=== PATIENT | female | born 1970 ===

== ENCOUNTER 2017-11-16 12:42 | Emergency (ER) | payer BC ==
[2017-11-16 14:04] LABS: BASO % 0.4 % (0.0-2.0); EOS # 0.1 K/uL (0.0-0.7); EOS % 0.9 % (0.0-4.0); HEMOGLOBIN 12.1 g/dL (12.0-16.0); LYMPH # 1.7 K/uL (1.0-4.3); LYMPH % 29.5 % (20.0-40.0); MEAN CELL VOLUME 86.1 fl (81.0-99.0); MEAN CORPUSCULAR HEMOGLOBIN 29.2 pg (27.0-31.0); MEAN CORPUSCULAR HGB CONC 33.9 g/dL (33.0-37.0); MEAN PLATELET VOLUME 8.9 fl (7.2-11.7); MONO # 0.5 K/uL (0.0-0.8); MONO % 8.9 % (0.0-10.0); NEUT # 3.6 K/uL (1.8-7.0); NEUT % 60.3 % (50.0-75.0); NRBC % 0.1 % (0.0-0.0); RBC 4.14 Mil/uL (3.80-5.20); RED CELL DISTRIBUTION WIDTH 13.4 % (11.5-14.5); WHITE BLOOD COUNT 5.9 K/uL (4.8-10.8)
[2017-11-16 14:14] LABS: ALB/GLOB RATIO 1.1 (1.0-2.1); ALBUMIN 4.2 g/dL (3.5-5.0); ALT/SGPT 26 U/L (9-52); AST/SGOT 24 U/L (14-36); BLOOD UREA NITROGEN 15 mg/dl (7-17); CALCIUM 9.3 mg/dL (8.4-10.2); GFR AFRICAN-AMERICAN > 60; GFR NON-AFRICAN AMERICAN > 60
--- NOTE | 2017-11-16 14:49 | ED PDOC ---
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 Patient states the symptoms started when she was lifting a box while at work. She reports the pain worsened last night, prompting the ER visit. Otherwise, no fever, chills, cough, and she offers no additional medical complaints. PMD: [facility] Past Medical History Reviewed: Historical Data, Nursing Documentation, Vital Signs Vital Signs: Last Vital Signs Temp 97.8 F 11/16/17 17:42 Pulse 71 11/16/17 17:42 Resp 18 11/16/17 17:42 BP 127/84 11/16/17 17:42 Pulse Ox 98 11/16/17 17:42 - Medical History PMH: Arthritis - Surgical History Surgical History: No Surg Hx - Family History Family History: States: No Known Family Hx - Social History Current smoker - smoking cessation education provided: No Alcohol: None Drugs: Denies - Immunization History Hx Tetanus Toxoid Vaccination: No Hx Influenza Vaccination: No Hx Pneumococcal Vaccination: No - Home Medications Home Medications: Ambulatory Orders Medication Instructions Recorded Phenazopyridine [Pyridium] 100 mg PO BID #6 tab 06/28/15 Sulfamethoxazole/Trimethoprim 1 tab PO BID #14 tab 06/28/15 [Bactrim DS 800 mg-160 mg] - Allergies Allergies/Adverse Reactions: Allergies Allergy/AdvReac Type Severity Reaction Status Date / Time aspirin Allergy REDNESS Verified 06/28/15 12:14 HOLLY Risk Score for UA/NSTEMI - HOLLY Risk Score Age > 64: NO 3 or more CAD Risk Factors: NO Known CAD (Stenosis greater than 50%): NO Aspirin use in past 7 days: NO Severe Angina: NO EKG ST changes greater than 0.5mm: NO Positive Cardiac Marker: NO HOLLY Score: 0 Risk %: 5% Wells Criteria for PE - Wells Criteria for Pulmonary Embolism Clinical Signs and Symptoms of DVT: No P.E is #1 Diagnosis, or Equally Likely: No Heart Rate >100: No Immobilization at least 3 days;Surgery previous 4 weeks: No Previous, objectively diagnosed PE or DVT: No Hemoptysis: No Malignancy w/treatment within 6 months, or palliative: No Total Score: 0 Review of Systems ROS Statement: Except As Marked, All Systems Reviewed And Found Negative Constitutional: Negative for: Fever, Chills Cardiovascular: Positive for: Chest Pain Respiratory: Negative for: Cough, Shortness of Breath Musculoskeletal: Positive for: Back Pain Physical Exam - Reviewed Nursing Documentation Reviewed: Yes Vital Signs Reviewed: Yes - Physical Exam Appears: Positive for: Non-toxic, No Acute Distress Head Exam: Positive for: ATRAUMATIC, NORMAL INSPECTION, NORMOCEPHALIC Skin: Positive for: Normal Color Eye Exam: Positive for: Normal appearance, EOMI, PERRL Neck: Positive for: Normal, Supple Cardiovascular/Chest: Positive for: Regular Rate, Rhythm, Other (+ pleuritic chest pain ). Negative for: Murmur Respiratory: Positive for: Normal Breath Sounds Gastrointestinal/Abdominal: Positive for: Soft. Negative for: Tenderness Back: Positive for: Normal Inspection. Negative for: L CVA Tenderness, R CVA Tenderness, Vertebral Tenderness, Muscle Spasm Extremity: Positive for: Normal ROM. Negative for: Pedal Edema Neurologic/Psych: Positive for: Alert, Oriented. Negative for: Motor/Sensory Deficits - Laboratory Results Result Diagrams: 11/16/17 14:00 11/16/17 14:00 - ECG ECG: Positive for: Interpreted By Me, Viewed By Pr ECG Rhythm: Positive for: Normal QRS, Normal ST Segment, Sinus Rhythm Rate: 85 O2 Sat by Pulse Oximetry: 99 (RA) Pulse Ox Interpretation: Normal Medical Decision Making Medical Decision Making: Impression: Musculoskeletal chest pain rule out cardiac etiology or pneumonia Plan: -- labs -- EKG -- chest x-ray 1551 Labs reviewed with no clinically significant abnormalities. Chest x-ray with no acute disease. Patient given flexeril and tylenol for pain relief. 162 Chest x-ray FINDINGS: LUNGS: No active pulmonary disease. PLEURA: No significant pleural effusion identified. No pneumothorax apparent. CARDIOVASCULAR: Normal. OSSEOUS STRUCTURES: No significant abnormalities. VISUALIZED UPPER ABDOMEN: Normal. OTHER FINDINGS: None. IMPRESSION: No active disease. 1645 On reassessment, patient reports improvement in pain. labs and EKG WNL. Stable for d/c home, instructed to follow up with PMD in 1-2 days, return with any worsening symptoms. Scribe Attestation: Documented by Madai Monteiro, acting as a scribe for Alla Infante MD. Provider Scribe Attestation: All medical record entries made by the Scribe were at my direction and personally dictated by me. I have reviewed the chart and agree that the record accurately reflects my personal performance of the history, physical exam, medical decision making, and the department course for this patient. I have also personally directed, reviewed, and agree with the discharge instructions and disposition. Disposition - Clinical Impression Clinical Impression: Musculoskeletal chest pain - Patient ED Disposition Is Patient to be Admitted: No Counseled Patient/Family Regarding: Studies Performed, Diagnosis, Need For Followup - Disposition Disposition: Routine/Home Disposition Time: 17:35 Condition: IMPROVED Additional Instructions: follow up in the clinic at [place] in 2 days for reevaluation take tylenol for pain return to the ED with any worsening or concerning symptoms Instructions: Chest Pain That Is Not Caused by the Heart (DC) Forms: [facility] (Tunisian) Print Language: YORUBA
--- NOTE | 2017-11-16 16:35 | RAD ---
Date of service: 11/16/2017 HISTORY: chest wall pain COMPARISON: No prior. TECHNIQUE: Chest PA and lateral FINDINGS: LUNGS: No active pulmonary disease. PLEURA: No significant pleural effusion identified. No pneumothorax apparent. CARDIOVASCULAR: Normal. OSSEOUS STRUCTURES: No significant abnormalities. VISUALIZED UPPER ABDOMEN: Normal. OTHER FINDINGS: None. IMPRESSION: No active disease.
[2017-11-16 17:44] VITALS: BP 127/84; RESP 18; TEMP 97.8
[2017-11-17 13:04] VITALS: PULSE 85; O2SAT 99
== END 2017-11-16 17:30 | disposition home or self-care (01) ==
LOC: H.ER 12:42
DX: R07.89 Other chest pain (principal)